=== PATIENT | female | born 1940 | race Caucasian/White ===

== ENCOUNTER 2018-01-23 10:15 | Emergency (ER) | payer MEDICARE, BC, OTHER ==
[2018-01-23 11:31] LABS: #Basophils 0.1 thou/uL (0.0-0.2); #Lymphocytes 1.2 thou/uL (1.20-3.40); #Monocytes 0.7 thou/uL (0.11-0.59); #Neutrophils 3.1 thou/uL (1.40-6.50); %Basophils 1.2 % (0.0-1.0); %Eosinophils 0.9 % (0.0-10.0); %Lymphocytes 24.3 % (21.0-51.0); %Monocytes 13.5 % (0.0-10.0); %Neutrophils 60.1 % (42.0-75.0); Mean Corpuscular Hemoglobin 28.7 pg (27.0-31.0); Mean Corpuscular Volume 89.5 fl (81.0-99.0); Mean Platelet Volume 6.2 fL (7.4-10.4); Platelet Count 396 thou/uL (130-400); RBC Distribution Width 12.8 % (11.5-14.5); Red Blood Cell (RBC) Count 3.85 mill/uL (4.20-5.40); White Blood Cell (WBC) Count 5.1 thou/uL (4.8-10.8)
[2018-01-23 12:01] LABS: ALT (SGPT) 9 U/L (8-55); AST (SGOT) 15 U/L (5-34); Albumin 3.8 g/dL (3.4-4.8); Alkaline Phosphatase 109 U/L (40-150); Anion Gap 11 mmol/L (10-20); BUN (Urea Nitrogen) 18 mg/dL (9.8-20.1); Bilirubin, Total 0.5 mg/dL (0.2-1.2); CK (CPK) 67 U/L (29-168); Calc. Creatinine Clearance 0 mL/min (70-130); Carbon Dioxide 26 mmol/L (23-31); Chloride 95 mmol/L (98-107); Estimated GFR-MDRD 42; Globulin 2.9 g/dL (2.4-3.5); Glucose 101 mg/dL (83-110); Lipase 34 U/L (8-78); Magnesium 1.7 mg/dL (1.6-2.6); Potassium 3.2 mmol/L (3.5-5.1); Protein, Total 6.7 g/dL (6.0-8.3); Sodium 129 mmol/L (136-145)
[2018-01-23 12:04] LABS: Bilirubin Negative (Negative); Blood, Urine Negative (Negative); Clarity CLEAR (Clear); Glucose, Urine (Dipstick) Negative (Negative); Leukocyte Negative (Negative); Nitrite Negative (Negative); Protein, Urine (Dipstick) Negative (Neg-Trace); Specific Gravity, Urine 1.006 (1.002-1.036); Urobilinogen 0.2 mg/dL (0.2-1.0)
--- NOTE | 2018-01-23 12:07 | RAD ---
PORTABLE CHEST: History: Abdominal pain, chest pain. FINDINGS: Lung gonzalez are clear. No infiltrate or vascular congestion. Heart and mediastinum appear unremarkabl e. IMPRESSION: Unremarkable chest. POS: [facility]
[2018-01-23 12:17] LABS: CKMB 0.8 ng/mL (0-6.6); Troponin I Less than 0.010 ng/mL (< 0.028)
--- NOTE | 2018-01-23 13:32 | CT ---
CT ABDOMEN AND PELVIS WITHOUT CONTRAST: HISTORY: Left lower quadrant pain, diarrhea, nausea, vomiting. FINDINGS: Absence of oral and IV contrast reduces the sensitivity of the exam, particularly for evaluation of s olid organs involved. There are mild dependent changes in the lung bases. No free air or free fluid is seen in the abdomen or pelvis. No calcified gallstones are noted. No calculi are seen in the kidneys, ureters, or the urinary bladder. There are bilateral parapelvic cysts. No hydroureteral nephrosis is noted on eithe r side. There is colonic diverticulosis without evidence of diverticulitis. There is increased haziness in t he mesenteric fat. Vascular calcifications are present without evidence of aneurysmal dilatation of the abdominal aorta. A retroaortic left renal vein is noted. There are dependent changes in the spi ne. A small hiatal hernia was present. IMPRESSION: 1. Small hiatal hernia. 2. Bilateral parapelvic cysts. 3. Colonic diverticulosis without evidence of diverticulitis. 4. 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 POS: [facility]
--- NOTE | 2018-01-26 18:30 | EKG ---
Test Reason : Blood Pressure : / mmHG Vent. Rate : 071 BPM Atrial Rate : 071 BPM P-R Int : 226 ms QRS Dur : 084 ms QT Int : 400 ms P-R-T Axes : 031 -42 028 degrees QTc Int : 434 ms Sinus rhythm with 1st degree A-V block Left axis deviation Minimal voltage criteria for LVH, may be normal variant Septal infarct , age undetermined Abnormal ECG Confirmed by CHRISTAL CHURCH D.O. ([id number]), electronic news gathering editor CHARBEL ROGERS ([id number]) on 01/26/2018 6:29:46 PM Referred By: Confirmed By:CHRISTAL CHURCH D.O.
== END 2018-01-23 13:47 | disposition home or self-care (01) ==
LOC: ERS 10:15
DX: K52.9 Noninfective gastroenteritis and colitis, unspecified (principal); I10 Essential (primary) hypertension; Z79.899 Other long term (current) drug therapy
CPT/HCPCS: 71045; 74176; 80053; 81003; 82550; 82553; 83690; 83735; 84484; 85025; 87086; 93005; 96360

== ENCOUNTER 2018-01-31 12:56 | Observation (INO) | payer MEDICARE, BC, OTHER ==
[2018-01-31 14:20] LABS: Hemoglobin 11.8 g/dL (12.0-16.0); Mean Corpuscular HGB CONC 33.7 g/dL (32.0-36.0); Mean Corpuscular Hemoglobin 29.9 pg (27.0-31.0); Mean Corpuscular Volume 88.7 fl (81.0-99.0); Mean Platelet Volume 6.5 fL (7.4-10.4); Platelet Count 439 thou/uL (130-400); RBC Distribution Width 12.8 % (11.5-14.5); Red Blood Cell (RBC) Count 3.94 mill/uL (4.20-5.40)
[2018-01-31 14:21] LABS: ALT (SGPT) 20 U/L (8-55); AST (SGOT) 36 U/L (5-34); Alkaline Phosphatase 94 U/L (40-150); Anion Gap 9 mmol/L (10-20); BUN (Urea Nitrogen) 13 mg/dL (9.8-20.1); Bilirubin, Total 0.6 mg/dL (0.2-1.2); Calc. Creatinine Clearance 0 mL/min (70-130); Calcium 9.4 mg/dL (7.8-10.44); Carbon Dioxide 31 mmol/L (23-31); Chloride 90 mmol/L (98-107); Estimated GFR-MDRD 45; Glucose 103 mg/dL (83-110); Lipase 59 U/L (8-78); Magnesium 1.7 mg/dL (1.6-2.6); Phosphorus 2.3 mg/dL (2.3-4.7); Sodium 127 mmol/L (136-145)
[2018-01-31 14:24] LABS: Potassium 2.8 mmol/L (3.5-5.1)
[2018-01-31] MEDS ORDERED: Potassium Chloride 20 MEQ TAB ONE ×2 (14:45→14:54)
[2018-01-31 14:48] LABS: Band 2 % (5-11); Eosinophils 1 % (0-10); Lymphocytes 12 % (21-51); MDiff Complete? YES; Monocytes 3 % (0-10); Neutrophil 82 % (42-75); PLT Morphology Comment Appears Increased
[2018-01-31] MEDS: NS 0.9% w/ 20 MEQ KCL 1,000 ML IV SCH (16:30)
[2018-01-31] MEDS ORDERED: Ondansetron HCl/PF 4 MG/2 ML Vial IVP PRN ×2 (16:30→16:36)
[2018-01-31] MEDS ORDERED: Ondansetron ODT 4 MG TAB SL PRN (16:30)
[2018-01-31] MEDS ORDERED: Ondansetron ODT 4 MG TAB PO PRN (16:36)
[2018-01-31] MEDS ORDERED: Acetaminophen 325 MG TAB PO PRN (16:36)
--- NOTE | 2018-01-31 16:57 | HP ---
DATE OF ADMISSION: 01/31/2018 TIME OF SERVICE: 1500. PRIMARY CARE PHYSICIAN: Linda Martin MD CHIEF COMPLAINT: Abnormal labs. HISTORY OF PRESENT ILLNESS: Ms. Michael is a pleasant 77-year-old female with history of fibromyalgia, rheumatoid arthritis, leflunomide, hypertension, cervical radiculopathy, carpal tunnel syndrome, osteoarthritis of her knees, diverticulosis and renal cysts, as well as a remote history of irritable bowel syndrome. The patient presented to the emergency department today at direction of her primary care physician. The patient gives a prolonged history of diarrhea with occasional nausea, starting sometime in December of this year. She has been eating a BRAT diet and drinking Pedialyte in response. She presented to the Emergency Department for evaluation of diarrhea as it kept continuing on 01/23/2018. She saw Dr. Nuno at that time, labs were normal. CT scan showed diverticulosis without diverticulitis. She was diagnosed with colitis and started on Cipro and Flagyl and sent home. She finished with antibiotics either yesterday or today. She has noticed an increase in the diarrhea around that time and it is persisted. She did recently do fecal occult blood test at home that was reportedly negative as well. In followup of her ER visit, she saw Dr. Martin 2 days ago and at that time had labs drawn. Today, she was called by Dr. Martin because her potassium was low and she was instructed to come to the emergency department. The patient denies any palpitations, chest pain or shortness of breath. No nausea. She started having some loose stools, though it is currently better today. No other current complaints. She specifically denies fevers, chills, chest pain, shortness of breath, syncope , presyncope. She has been kind of "foggy" but with some increased forgetfulness. She was referred to Gastroenterology and was supposed to see Dr. Ballesteros, however , for some reason, his office had to cancel that appointment. She then got a referral to [facility], which is currently pending. In the emergency department today, she had a potassium of 2.5, sodium 129, chloride of 90, and we are being called for admission. at the bedside. The patient does wish to be a FULL CODE and he is surrogate medical decision maker. PAST MEDICAL HISTORY: 1. Rheumatoid arthritis. 2. Fibromyalgia. 3. Hypertension. 4. Cervical radiculopathy. 5. Carpal tunnel syndrome. 6. Osteoarthritis of her knees. 7. Vertigo. 8. Diverticulosis. 9. Renal cyst. 10. Irritable bowel syndrome. PAST SURGICAL HISTORY: 1. Laminectomy in 1981. 2. Appendectomy in 1954. 3. Hysterectomy in 1980. 4. Carpal tunnel release bilaterally, 2 separate procedures in the last 4 months. 5. Bladder suspension around 1983. MEDICATIONS: 1. Leflunomide 20 mg p.o. daily. 2. Benicar/HCT 40/25 daily. 3. Florastor 250 mg p.o. daily, 4. Vitamin D3 1000 units daily. 5. Tylenol 650 mg p.o. as needed. 6. Imodium 2 mg p.o. as needed. 7. Meclizine 25 mg q.6 hours p.r.n. vertigo. 8. Zofran ODT as needed. 9. Duloxetine 60 mg p.o. daily. 10. Cholestyramine. 11. She recently on Cipro and Flagyl, which is completed. ALLERGIES: CODEINE, causes severe nausea and vomiting. FAMILY HISTORY: Negative for clotting or bleeding disorder. No immune dysfunction. No premature coronary artery disease. SOCIAL HISTORY: Negative for habits x3. She is . REVIEW OF SYSTEMS: All systems reviewed and negative except as stated above. PHYSICAL EXAMINATION: VITAL SIGNS: Temperature 98.7, pulse 73, blood pressure 107/63, respiratory rate 16, satting 99% on room air. GENERAL: She is awake. She is alert. She is oriented x3. She is a very pleasant older white female, appears to be in zero distress. HEENT: Normocephalic and atraumatic. Pupils equal, round, react to light bilaterally. Mucosa moist. No visible lesions. No thrush. NECK: Supple. She has no lymphadenopathy, JVD, or thyromegaly. She has normal carotid upstrokes. There are no bruits. LUNGS: Clear anteriorly. She has no wheezes, no rales, no rhonchi. She has no prolonged expiratory phase. She has no posterior crackles. CARDIOVASCULAR: She has normal S1, S2. No S3, S4. I do not appreciate murmurs. ABDOMEN: Soft, slightly distended and tympanitic. She has hyperactive bowel sounds present predominantly in the bilateral upper quadrants. She is nontender. There is no rebound, rigidity or guarding. EXTREMITIES: Her extremities show no cyanosis, no clubbing. She hypersensitivity to touch of her lower extremities from fibromyalgia, but she has no edema. SKIN: Warm, moist, and well perfused. A kind of crepe like on her bilateral lower extremities. She has no lesions. MUSCULOSKELETAL: Normal to inspection. Large joints appear normal. There is no evidence of inflammation. No palpable effusions. NEUROLOGIC: Cranial nerves II-XII are grossly intact. She has no focal deficits, 5/5 strength, and normal speech. LABORATORY DATA: Sodium is 127, potassium 2.8, chloride 90, bicarbonate 31, BUN 13, creatinine 1.18, calcium 9.4, and glucose 103. Her liver function appeared within normal limits. Her CBC showed a white count of 7, hemoglobin is 11.8, hematocrit 35.0, platelet count is 429,000. CT scan of the abdomen and pelvis done on 01/23/2018 shows diverticulosis without diverticulitis, small hiatal hernia, bilateral parapelvic cysts and probable mild mesenteric panniculitis. Review of her laboratory from her visit to the ER on 01/23/2018 showed potassium at that time was 3.2, sodium is 129, creatinine is 1.24. This was actually improved. Normal biomarkers and negative LFTs. ASSESSMENT AND PLAN: 1. Hypokalemia: Potassium was 2.8 here. She received 40 mEq p.o. in the emergency department and is getting normal saline with potassium chloride in it. I will continue the normal saline with KCl 40 mEq per liter at 100 an hour tonight. We will check a stat magnesium level to ensure that she does not have deficiency. We will follow up on that. We will monitor on telemetry for now. Expected to be corrected by morning. 2. Chronic diarrhea with acute worsening. The patient was recently on antibiotic. We will check a C. diff, also check stool culture, fecal leukocytes and ova and parasites. She uses bottled water or filtered water, does not use any well water that she knows of. 3. Hypertension, essential. Blood pressure is okay. We will continue home medications. 4. Home meds for rheumatoid arthritis we will continue. 5. Cervical radiculopathy. 6. History of carpal tunnel syndrome, status post repair. 7. Osteoarthritis. 8. Vertigo, meclizine p.r.n. 9. Diverticulosis without diverticulitis. I did not repeat any imaging today. She has a negative exam. 10. Irritable bowel syndrome. We will place the patient in observation on telemetry. We will correct her electrolytes overnight. If she has any problems or worsening diarrhea, we will ask GI to evaluate. We will follow up on her stool studies. DAVID
[2018-01-31] MEDS ORDERED: Enoxaparin Sodium 40 MG/0.4 ML SYRINGE SC SCH (17:00)
[2018-01-31] MEDS: NS 0.9% w/ 40 MEQ KCL 1,000 ML IV SCH (18:21)
[2018-01-31] MEDS: Famotidine 20 MG TAB PO SCH (21:11)
[2018-02-01] MEDS: NS 0.9% w/ 20 MEQ KCL 1,000 ML IV SCH (00:08)
[2018-02-01 05:00] LABS: Anion Gap 9 mmol/L (10-20); BUN (Urea Nitrogen) 12 mg/dL (9.8-20.1); Calc. Creatinine Clearance 56 mL/min (70-130); Calcium 8.3 mg/dL (7.8-10.44); Carbon Dioxide 26 mmol/L (23-31); Chloride 100 mmol/L (98-107); Estimated GFR-MDRD 53; Glucose 86 mg/dL (83-110); Magnesium 1.4 mg/dL (1.6-2.6); Potassium 3.7 mmol/L (3.5-5.1); Sodium 131 mmol/L (136-145)
[2018-02-01] MEDS: NS 0.9% w/ 40 MEQ KCL 1,000 ML IV SCH ×3 (05:26→21:31)
[2018-02-01 06:00] LABS: Band 6 % (5-11); Crenated RBC SLIGHT = 1-5 cells (100X) (None Seen); Elliptocytes SLIGHT = 2-5 cells (100X) (0-1/hpf); Hemoglobin 9.6 g/dL (12.0-16.0); Lymphocytes 51 % (21-51); MDiff Complete? YES; Mean Corpuscular HGB CONC 33.4 g/dL (32.0-36.0); Mean Corpuscular Hemoglobin 30.5 pg (27.0-31.0); Mean Corpuscular Volume 91.3 fl (81.0-99.0); Mean Platelet Volume 6.5 fL (7.4-10.4); Monocytes 4 % (0-10); Neutrophil 39 % (42-75); Platelet Count 348 thou/uL (130-400); RBC Distribution Width 12.8 % (11.5-14.5); Red Blood Cell (RBC) Count 3.14 mill/uL (4.20-5.40); White Blood Cell (WBC) Count 5.3 thou/uL (4.8-10.8)
[2018-02-01] MEDS ORDERED: Magnesium 2 GM/NS 0.9% 100 ML 2 GM in Premix Bag 1 BAG IVPB SCH (08:00)
[2018-02-01] MEDS: Famotidine 20 MG TAB PO SCH ×2 (09:07→21:30)
[2018-02-01 11:46] VITALS: BMI 28.3
[2018-02-01] MEDS ORDERED: DULoxetine 60 MG CAP PO SCH (14:30)
[2018-02-01] MEDS ORDERED: Hydrochlorothiazide 25 MG TAB PO SCH (14:45)
[2018-02-01] MEDS ORDERED: Saccharomyces boulardii 250 MG CAP PO SCH (14:45)
[2018-02-01] MEDS ORDERED: Leflunomide 10 mg Tablet PO SCH (15:00)
[2018-02-01] MEDS ORDERED: GoLYTELY 4,000 ml Bottle PO SCH (19:15)
--- NOTE | 2018-02-01 19:56 | CON ---
DATE OF CONSULTATION: 02/01/2018 HISTORY OF PRESENT ILLNESS: The patient is a 77-year-old female, who reports a 1-month his tory of diarrhea. On further questioning, the patient has had a long history of diarrhea for many ye ars. This seems to have gotten worse over the last month. She was given antibiotics and she finishe d use recently. This did not improve her diarrhea. The patient had some laboratory drawn by her [facility] physician and this showed hypokalemia, so she was told to come to the emergency room and yury was admitted. She does have epigastric pain and nausea without vomiting. She denies any weight lo ss, any melena, or hematochezia. She does describe mucus in her stools, but no grease or oil. She d enies any travel outside the country or any antibiotics prior to her worsening diarrhea. Her last co lonoscopy was approximately 4-5 years ago. It sounds like she has been worked up for diarrhea in the past and has given cholestyramine with fairly good results. It was stopped, but she is unsure why i t was stopped. PAST MEDICAL HISTORY: Includes fibromyalgia, rheumatoid arthritis, hypertension, irritable bowel syn drome. PAST SURGICAL HISTORY: Includes laminectomy, appendectomy, hysterectomy, carpal tunnel, two bladder suspension surgeries. ALLERGIES: Include CODEINE AND METHOTREXATE. HOME MEDICATIONS: Include vitamin D3 of 3000 units p.o. q. day, Florastor 250 mg p.o. b.i.d., Arava 1 p.o. q. day, duloxetine 1 p.o. q. day, olmesartan/hydrochlorothiazide 40/25 one p.o. q. day. SOCIAL HISTORY: She does not drink or smoke. FAMILY HISTORY: Negative for GI or liver disease. REVIEW OF SYSTEMS: Constitutional: No fever or chills, no weight loss. Eyes: No blurred vision or double vision. ENT: No sore throat or earaches. Cardiovascular: No chest pain or palpitations. Pulmonary: No shortness of breath, cough or wheezing. Gastrointestinal: See above. : No hematu romeo or dysuria. Musculoskeletal: No joint pain or muscle weakness. Skin: No rashes. Neurologic: No numbness or seizure activity. PHYSICAL EXAMINATION: VITAL SIGNS: Temperature 98.7, pulse 88, respiratory rate 18, blood pressure 163/82. HEENT: Unremarkable. NECK: Supple. CHEST: Clear. CARDIOVASCULAR: Regular rate and rhythm. ABDOMEN: Soft, slightly tender in epigastric area without rebound or guarding. Bowel sounds are pre sent and normoactive. RECTAL: Deferred. EXTREMITIES: Normal. NEUROLOGIC: Nonfocal. LABORATORY DATA: On admission showed a white blood cell count of 7.0, hemoglobin of 11.8, hematocrit 35.0, platelet count of 439. Chemistry on admission shows a sodium of 127, potassium 2.8, creatinin e 1.18, AST of 36. On repeat, sodium is 131, potassium 3.7, magnesium 1.4. Stool studies negative f or fecal lactoferrin. Stool for Campylobacter is negative. Stool for Shigella toxins is negative. Stool culture is negative. Stool for C. difficile is negative. Abdominal and pelvic CT done from a prior visit show a small hiatal hernia, bilateral para pelvic cyst, colonic diverticulosis, probable mild mesenteric panniculitis. ASSESSMENT: 1. Chronic diarrhea - sounds like the patient has had a long history of chronic diarrhea that has wo rsened over the last 4-6 weeks. Stool studies have been negative. This could be an exacerbation of her irritable bowel syndrome, could be bile acid diarrhea, could be a Clostridium difficile with a fa lse negative stool result. Also, possible would be a microscopic colitis. 2. Epigastric pain and nausea. 3. Rheumatoid arthritis. 4. Fibromyalgia. 5. Irritable bowel syndrome. RECOMMENDATIONS: 1. EGD and colonoscopy in a.m. 2. These results will dictate further management.
--- NOTE | 2018-02-02 07:10 | PDOC.PN ---
- Subjective Encounter Start Date: 02/01/18 Encounter Start Time: 08:20 PT did well overnight, 2+ BM, no bleeding. overall feels much better. No F/C, no n/V/d/c, no CP or sOB. Mag low - beign replaced. Discused with pt, due to chronic nature, and need for hospitalization for electrolyte replacement, asya ask GI to see all systems reviewed and neg x as above - Objective Resuscitation Status: Resuscitation Status FULL:Full Resuscitation MAR Reviewed: Yes Vital Signs & Weight: Vital Signs (12 hours) Temp Pulse Resp BP Pulse Ox 02/02/18 04:00 97.6 F 86 18 174/94 H 98 02/01/18 20:00 98.7 F 88 18 Weight Admit Weight 163 lb Weight 165 lb 1.6 oz I&O: 02/01/18 02/02/18 02/03/18 06:59 06:59 06:59 Intake Total 2422 850 Output Total 600 Balance 1822 850 Result Diagrams: 02/01/18 03:45 02/01/18 03:45 Phys Exam - Physical Examination Constitutional: NAD HEENT: PERRLA, moist MMs, sclera anicteric, oral pharynx no lesions Neck: no nodes, no JVD, supple, full ROM Respiratory: no wheezing, no rales, no rhonchi, clear to auscultation bilateral Cardiovascular: RRR, no significant murmur, no rub Gastrointestinal: soft, non-tender, no distention, positive bowel sounds Musculoskeletal: pulses present, edema present trace pedal Neurological: non-focal, normal sensation, moves all 4 limbs Lymphatic: no nodes Psychiatric: normal affect, A&O x 3 Skin: no rash, normal turgor, cap refill <2 seconds Dx/Plan (1) Hypokalemia, gastrointestinal losses Code(s): E87.6 - HYPOKALEMIA Status: Acute Plan: replaced, watch Comment: repalced. watch (2) Diverticulosis Code(s): K57.90 - DVRTCLOS OF INTEST, PART UNSP, W/O PERF OR ABSCESS W/O BLEED Status: Chronic Qualifiers: Diverticulosis site: unspecified location Diverticulosis bleeding: diverticulosis without bleeding Qualified Code(s): K57.90 - Diverticulosis of intestine, part unspecified, without perforation or abscess without bleeding (3) Chronic diarrhea Code(s): K52.9 - NONINFECTIVE GASTROENTERITIS AND COLITIS, UNSPECIFIED Status : Chronic Comment: going on for yeas, worse since december, severe in alst 2 weeks. better a present after cipro and flaylo, studies neg, ask GI to see (4) Mild dehydration Code(s): E86.0 - DEHYDRATION Status: Resolved Comment: present on admit, resolved (5) Hypomagnesemia Code(s): E83.42 - HYPOMAGNESEMIA Status: Acute Comment: replace - Plan cont current plan of care, out of bed/ambulate * .
[2018-02-02 08:25] LABS: Band 6 % (5-11); Eosinophils 1 % (0-10); Hemoglobin 11.2 g/dL (12.0-16.0); Lymphocytes 36 % (21-51); MDiff Complete? YES; Mean Corpuscular HGB CONC 32.6 g/dL (32.0-36.0); Mean Corpuscular Hemoglobin 29.5 pg (27.0-31.0); Mean Corpuscular Volume 90.7 fl (81.0-99.0); Mean Platelet Volume 6.3 fL (7.4-10.4); Monocytes 5 % (0-10); Neutrophil 50 % (42-75); Platelet Count 362 thou/uL (130-400); RBC Distribution Width 12.9 % (11.5-14.5); Reactive Lymphocytes 2 % (0-10); Red Blood Cell (RBC) Count 3.78 mill/uL (4.20-5.40); White Blood Cell (WBC) Count 6.4 thou/uL (4.8-10.8)
[2018-02-02 08:26] LABS: Anion Gap 11 mmol/L (10-20); BUN (Urea Nitrogen) 9 mg/dL (9.8-20.1); Calc. Creatinine Clearance 58 mL/min (70-130); Calcium 8.6 mg/dL (7.8-10.44); Carbon Dioxide 22 mmol/L (23-31); Chloride 105 mmol/L (98-107); Estimated GFR-MDRD 56; Glucose 88 mg/dL (83-110); Magnesium 1.7 mg/dL (1.6-2.6); Potassium 3.8 mmol/L (3.5-5.1); Sodium 134 mmol/L (136-145)
[2018-02-02] MEDS ORDERED: Hydrochlorothiazide 25 MG TAB PO SCH (09:00)
[2018-02-02] MEDS ORDERED: DULoxetine 60 MG CAP PO SCH (09:00)
[2018-02-02] MEDS ORDERED: Saccharomyces boulardii 250 MG CAP PO SCH (09:00)
[2018-02-02] MEDS ORDERED: Leflunomide 10 mg Tablet PO SCH (09:00)
[2018-02-02] MEDS ORDERED: Ondansetron HCl/PF 4 MG/2 ML Vial IVP PRN (12:30)
[2018-02-02] MEDS ORDERED: PROPOFOL 200 MG/20 ML VIAL ONE (14:02)
[2018-02-02] MEDS ORDERED: Lidocaine 1% PF 5 ML VIAL ONE (14:02)
[2018-02-02] MEDS: NS 0.9% w/ 40 MEQ KCL 1,000 ML IV SCH (14:15)
[2018-02-02] MEDS: Famotidine 20 MG TAB PO SCH (14:27)
[2018-02-02 15:44] VITALS: BP 150/72; TEMP 97.7
--- NOTE | 2018-02-02 16:03 | DIS ---
DATE OF ADMISSION: 01/31/2018 DATE OF DISCHARGE: 02/02/2018 PRIMARY CARE PHYSICIAN: Listed as Linda Martin M.D. DISCHARGE DIAGNOSES: 1. Hypokalemia and hypomagnesemia. 2. Severe diarrhea, acute on chronic. 3. Mild dehydration. 4. Essential hypertension. 5. Rheumatoid arthritis. 6. Diverticulosis. 7. Candidal esophagitis, new diagnosis. 8. Fibromyalgia. 9. Essential hypertension. 10. Cervical radiculopathy. 11. History of carpal tunnel syndrome, status post release. 12. Bilateral knee osteoarthritis. 13. Vertigo. 14. Chronic renal cyst. 15. Possible irritable bowel syndrome. CONSULTATIONS: Gastroenterology, Dr. Justyn Rangel. PROCEDURES: 1. Colonoscopy, 02/02/2018. 2. EGD, 02/02/2018. HISTORY AND PHYSICAL: Ms. Michael is a pleasant 77-year-old female who presented to the emergency depa rtment at the direction of primary care physician. She has ongoing diarrhea. Saw her primary care p justin 2 days prior to arrival to presentation. She had labs drawn that showed potassium of 2.5 an d she was directed to the ER. Here, potassium was confirmed. We were called for admission. The patient related history of chronic diarrhea. No abdominal pain, no nausea, no bleeding. Other l abs remained normal. She was placed in observation and replaced. Overnight, she did well. Her repeat potassium in the morning was 3.7 and her magnesium was a little bit low at 1.4 and was also replaced. Due to the nature of her diarrhea, the fact she already had 2 bowel movements that day and led to her getting admitted for low potassium, asked GI for their opinio n. She was seen by GI on 02/01/2018 and recommended EGD and colonoscopy. Her discharge was canceled and she was kept overnight for bowel preparation. Today, 02/02/2018, she underwent upper and lower endoscopy. Upper endoscopy revealed Radha esophag itis and colonoscopy revealed diverticulosis which was already known, but no other abnormalities were noted. Patient was started on fluconazole and cholestyramine and cleared for discharge by GI. PHYSICAL EXAMINATION: The patient was seen and examined on the day of discharge. Discharge plan and disposition was discussed with the patient and her with [id number] at the bedside. DISCHARGE MEDICATIONS: New medications: 1. Cholestyramine/aspartame 4 gram packet p.o. b.i.d. Prescription sent. 2. Fluconazole 200 mg p.o. daily for 14 days. 3. Leflunomide 20 mg daily. 4. Olmesartan/HCTZ 40/25 one tablet p.o. daily. 5. Florastor 250 mg caplets p.o. daily. 6. Vitamin D3 3000 units p.o. daily. 7. Duloxetine 160 mg p.o. daily. FOLLOWUP APPOINTMENTS: 1. Primary care physician in [address] Rangel in 2 weeks. DISCHARGE ACTIVITY: As tolerated. DISCHARGE DIET: No restrictions. DISCHARGE CONDITION: Stable. DISPOSITION: To be discharged home via private vehicle.
--- NOTE | 2018-02-02 17:30 | OP ---
PREOPERATIVE DIAGNOSES: Epigastric pain, chronic diarrhea. PROCEDURE: After informed consent was obtained, the patient placed in the left lateral decubitus pos ition, anesthesia was administered per the Anesthesia Department. Forward-viewing endoscope was inse rted into the esophagus under direct visualization with ease and passed to the second portion of the duodenum with ease. Second portion of the duodenum and duodenal bulb were normal. The second portio n of the duodenum was normal and random biopsies were taken from the second portion of the duodenum. The pylorus, antrum, body, fundus and cardia were normal. Retroflexion in the stomach was normal. The esophagus was normal throughout except for a Radha esophagitis. A few biopsies were taken of t he esophagus. ASSESSMENT: 1. Radha esophagitis. 2. Otherwise, normal esophagogastroduodenoscopy. RECOMMENDATIONS: 1. Diflucan. 2. Await histopathology. 3. Proceed with colonoscopy. PROCEDURE: After informed consent was obtained, the patient placed in the left lateral decubitus pos ition, anesthesia was administered per the Anesthesia Department. Forward-viewing endoscope was inse rted into the rectum after perianal inspection and rectal exam were normal and passed to the cecum wi th ease. The cecum, ileocecal valve and appendiceal orifice were normal. The prep was excellent. T he terminal ileum was normal. The ascending, transverse, descending, sigmoid and rectum were normal. Retroflexion in rectum was normal. A fairly extensive left-sided diverticula were noted. ASSESSMENT: 1. Left-sided diverticulosis coli. 2. Otherwise, normal ileal colonoscopy. RECOMMENDATIONS: 1. Await histopathology. 2. Trial of cholestyramine. 3. Stable for discharge from GI standpoint.
[2018-02-02] MEDS ORDERED: Cholestyramine/Aspartame 4 gm Packet PO SCH (22:00)
[2018-02-03] MEDS ORDERED: Fluconazole 100 MG TAB PO SCH (09:00)
== END 2018-02-02 15:05 | disposition home or self-care (01) ==
LOC: ERS 12:56 → 2NO 15:01 → INTOOBSV 15:01
PROVIDERS: ADMIT Internal Medicine Infectious Disease; ATTEND Internal Medicine Infectious Disease
PROC: 0DBE8ZX Excision of Large Intestine, Via Natural or Artificial Opening Endoscopic, Diagnostic (ICD-10-PCS; principal; 2018-02-02)
PROC: 0DB98ZX Excision of Duodenum, Via Natural or Artificial Opening Endoscopic, Diagnostic (ICD-10-PCS; 2018-02-02)
PROC: 0DB58ZX Excision of Esophagus, Via Natural or Artificial Opening Endoscopic, Diagnostic (ICD-10-PCS; 2018-02-02)
DX: K52.9 Noninfective gastroenteritis and colitis, unspecified (principal); B37.81 Candidal esophagitis; K57.30 Diverticulosis of large intestine without perforation or abscess without bleeding; E87.6 Hypokalemia; E86.0 Dehydration; E83.42 Hypomagnesemia; I10 Essential (primary) hypertension; M06.9 Rheumatoid arthritis, unspecified; M79.7 Fibromyalgia; M17.0 Bilateral primary osteoarthritis of knee; Z79.52 Long term (current) use of systemic steroids; Z79.899 Other long term (current) drug therapy; Z88.5 Allergy status to narcotic agent; Z88.8 Allergy status to other drugs, medicaments and biological substances
CPT/HCPCS: 43239; 45380; 80048 ×2; 80053 ×2; 82977; 83630; 83690; 83735 ×3; 84100; 85025 ×3; 87015; 87045; 87046; 87206; 87324; 87449 ×2; 87899 ×2; 88305; 88312; 88313; 96365; 96366 ×2; 96367; 96372; 97139 ×2; 99285; G0378; 36415; 87081; J1650; J2001; J2704; J3475

== ENCOUNTER 2019-07-28 14:12 | Outpatient (CLI) | payer MEDICARE, BC, OTHER ==
--- NOTE | 2019-07-28 14:30 | RAD ---
2 view chest: [07/28/2019] Comparion:05/30/2017 HISTORY: Cough, runny nose FINDINGS: Heart and mediastinal contours are within normal limits. No pneumothorax or pleural fluid. No focal consolidation or alveolar edema. IMPRESSION: No radiographic evidence of acute cardiopulmonary disease.
== END 2019-07-28 14:13 | disposition home or self-care (01) ==
LOC: BICRAD 14:12
PROVIDERS: ATTEND Internal Medicine
DX: R05 Cough (principal)
CPT/HCPCS: 71046

== ENCOUNTER 2019-08-22 10:39 | Outpatient (CLI) | payer MEDICARE, BC, OTHER ==
--- NOTE | 2019-08-22 13:28 | CT ---
CHEST CT SCAN WITHOUT IV CONTRAST: HISTORY: Cough for 6 months, dyspnea. COMPARISON: 07/28/2019 chest PA and lateral. FINDINGS: There is a 1.5 x 1.7 cm diameter nodule in the right lobe of the thyroid. Minimal posterior pleural- based scarring in the right upper lobe. A 0.4 cm subpleural nodule in the right upper lobe. Somewha t poorly defined 0.7 x 0.8 x 1.4 cm diameter nodule with some perinodular linear parenchymal changes in the posterior right upper lobe. I feel that this is probably large enough to be evaluated with a followup PET scan. If for some reason the PET cannot be performed, followup CT scan in 3 months is s uggested. Small hiatal hernia. Bilateral renal parapelvic cysts. IMPRESSION: Pulmonary nodule in the superior segment of the right lower lobe posteriorly. Followup as above. Mi nimal pleural-based scarring in the right upper lobe. A 0.4 cm subpleural nodule in the right upper lobe. Right thyroid nodule. Other findings as above. CODE T POS: [facility]
== END 2019-08-22 10:40 | disposition home or self-care (01) ==
LOC: SCSCT 10:39
PROVIDERS: ATTEND Internal Medicine
DX: R06.00 Dyspnea, unspecified (principal); R91.1 Solitary pulmonary nodule; J98.4 Other disorders of lung; K44.9 Diaphragmatic hernia without obstruction or gangrene; E04.1 Nontoxic single thyroid nodule
CPT/HCPCS: 71250

== ENCOUNTER 2019-09-11 11:07 | Outpatient (CLI) | payer MEDICARE, BC, OTHER ==
--- NOTE | 2019-09-11 14:37 | PET ---
PET CT: HISTORY: A 78-year-old female with right pulmonary nodule. TECHNIQUE: PET scanning with CT attenuation correction was performed from the base of the brain through the prox imal thighs following the intravenous administration of 10 mCi [id number] in the left ant ecubital fossa. COMPARISON: None. CORRELATION: CT chest of 08/22/2019. FINDINGS: No hypermetabolic activity is seen in the pulmonary nodules and right lung nodules noted on the CT sc an. No delano hypermetabolism is noted in the neck, chest, axillae, abdomen, or pelvis. No hypermetabolic pulmonary nodules, liver, adrenal, or skeletal lesions are seen. There is physiologic activity in the GI and tracts, heart, and the visualized portions of the brai n. The CT scan used for attenuation correction demonstrates no evidence of pleural effusions or ascites. There is colonic diverticulosis and bilateral parapelvic cysts. IMPRESSION: No evidence of malignancy/metastatic disease. POS: [facility]
== END 2019-09-11 11:08 | disposition home or self-care (01) ==
LOC: PET 11:07
PROVIDERS: ATTEND Internal Medicine
DX: R91.1 Solitary pulmonary nodule (principal)
CPT/HCPCS: 78815; A9552

== ENCOUNTER 2019-09-12 08:48 | Outpatient (CLI) | payer MEDICARE, BC, OTHER ==
--- NOTE | 2019-09-12 09:25 | ULT ---
ULTRASOUND THYROID STANDARD: History: Thyroid nodule. Comparison: PET CT prior day. Findings: Real-time grayscale and color evaluation of the thyroid was performed. Isthmus measures 5 mm in AP dimension. Right lobe measures 4.9 x 2.1 x 2.2 cm and the left lobe measu res 4.1 x 1.5 x 1.1 cm. In the superior pole right lobe of thyroid is a isoechoic wider than tall nodule measuring 3.5 cm in size with ill-defined margins without echogenic foci. This nodules TIRADS-3: Mildly suspicious. Given its size, fine-needle aspiration is recommended. At the inferior margin of the right lobe of th yroid is a 2 x 0.9 x 0.7 cm solid isoechoic wider than tall nodule with ill-defined margins without echogenic foci. This is also TIRADS-3: Mildly suspicious. Given its size, follow-up in 6 months-1 abiodun hastings is recommended. Simple colloid cysts in the left lobe of the thyroid. No solid nodule. Impression: Largest nodule in the right lobe of thyroid does meet TIRADS criteria for fine-needle aspiration. Of note, the history does state that the patient had a biopsy at a prior institution in the past. Recommend correlation with prior imaging and any change from that time. If this is of the same nodule , no further biopsy would be necessary if there is no significant change. Transcribed Date/Time: 09/12/2019 9:37 AM
== END 2019-09-12 08:49 | disposition home or self-care (01) ==
LOC: SCSULT 08:48
PROVIDERS: ATTEND Internal Medicine
DX: E04.1 Nontoxic single thyroid nodule (principal)
CPT/HCPCS: 76536

== ENCOUNTER 2020-11-10 10:44 | Outpatient (CLI) | payer MEDICARE, BC, OTHER ==
[2020-11-10] MEDS ORDERED: Magnevist 469MG/ML 20 ML VIAL ONE (14:15)
== END 2020-11-10 10:45 | disposition home or self-care (01) ==
LOC: BICULT 10:44
PROVIDERS: ATTEND Physician Assistant
DX: G45.9 Transient cerebral ischemic attack, unspecified (principal); E04.2 Nontoxic multinodular goiter; I67.82 Cerebral ischemia
CPT/HCPCS: 70544; 70553; 76536; 82565; A9579

== ENCOUNTER 2022-07-07 11:59 | Outpatient (CLI) | payer MEDICARE, BC, OTHER | END 2022-07-07 12:00 | disposition home or self-care (01) | LOC: CT 11:59 | PROVIDERS: ATTEND Internal Medicine | DX: K52.9 Noninfective gastroenteritis and colitis, unspecified (principal); E27.8 Other specified disorders of adrenal gland; K11.1 Hypertrophy of salivary gland; R63.4 Abnormal weight loss; N28.1 Cyst of kidney, acquired; K57.30 Diverticulosis of large intestine without perforation or abscess without bleeding | CPT/HCPCS: 74176; 76536 ==

== ENCOUNTER 2023-07-05 12:52 | Outpatient (CLI) | payer MEDICARE, BC, OTHER | END 2023-07-05 12:53 | disposition home or self-care (01) | LOC: BICRAD 12:52 | PROVIDERS: ATTEND Internal Medicine | DX: R05.9 Cough, unspecified (principal) | CPT/HCPCS: 36415; 71046; 80053; 81001; 85025 ==

== ENCOUNTER 2023-08-16 12:58 | Outpatient (CLI) | payer MEDICARE, BC, OTHER | END 2023-08-16 12:59 | disposition home or self-care (01) | LOC: BICULT 12:58 | PROVIDERS: ATTEND Otolaryngology Plastic Surgery within the Head & Neck | DX: E04.1 Nontoxic single thyroid nodule (principal) | CPT/HCPCS: 76536 ==